=== PATIENT | female | born 1985 | race Two or more races ===

== ENCOUNTER 2019-07-14 08:42 | Emergency (ER) | payer MEDICARE ==
[~2019-07-14] VITALS: Ht 154.9 cm; Wt 62.0 kg
[2019-07-14] MEDS ORDERED: NAPROXEN 250MG TABLET PO ONE (09:45)
[2019-07-14 09:51] VITALS: BP 158/98
== END 2019-07-14 09:53 | disposition home or self-care (01) ==
LOC: ER 08:42
DX: M79.18 Myalgia, other site (principal); Z88.0 Allergy status to penicillin
CPT/HCPCS: 99282